=== PATIENT | female | born 2000 ===

== ENCOUNTER 2019-03-05 00:03 | Inpatient (IN) ==
[2019-03-05 01:01] LABS: Apearance,Urine Slightly Hazy (Clear); Bacteria,Urine Many /HPF (Few); Bilirubin,Urine Negative (Negative); Blood, Urine Negative (Negative); Glucose,Urine (UA) Negative (Negative); Ketones,Urine Negative (Negative); Mucus,Urine Occasional /LPF (Occasional); Nitrite,Urine Positive (Negative); Protein,Urine Negative; RBC,Urine 3 /HPF (0-4); Squamous Epithelial Cell,Urine Few /HPF (0-10); Urine Color Yellow (Yellow); Urine Specific Gravity 1.019 (1.001-1.035); Urine Urobilinogen < 2.0 EU/DL (0.2-1.0); WBC,Urine 17 /HPF (0-6)
[2019-03-05] MEDS ORDERED: ceFAZolin 2,000 MG in PREMIX 1 EACH IV ONE ×2 (01:08→06:57)
[2019-03-05] MEDS ORDERED: ONDANSETRON 4 MG/2 ML VIAL IV PRN ×2 (01:09→08:48)
[2019-03-05] MEDS ORDERED: LACTATED RINGERS 1,000 ML IV ONE (01:09)
[2019-03-05] MEDS ORDERED: MEPERIDINE 25 MG/1 ML VIAL IV PRN (01:09)
[2019-03-05] MEDS ORDERED: diphenhydrAMINE 50 MG/1 ML VIAL IV ONE (01:59)
[2019-03-05] MEDS ORDERED: BUTORPHANOL 1 MG/ML VIAL IV ONE (05:06)
[2019-03-05] MEDS ORDERED: FAMOTIDINE 20 MG/2 ML VIAL IV ONE (06:57)
[2019-03-05] MEDS ORDERED: CITRIC ACID/SODIUM CITRATE 30 ML UDCUP PO ONE (06:57)
[2019-03-05] MEDS ORDERED: LACTATED RINGERS 1,000 ML IV SCH ×2 (07:00→09:00)
[2019-03-05 07:05] LABS: Basophils % 0.4 % (0.0-0.8); Eosinophils % 0.4 % (0.00-10.9); Hematocrit 30.7 VOL% (35.7-47.0); Hemoglobin 9.5 GM/DL (12.0-16.0); Immature Granulocytes % 0.5 %; Immature Granulocytes Absolute 0.04 #; Lymphocytes # 2.1 10*3/uL (1.4-4.0); Lymphocytes % 26.8 % (21.3-54.2); Mean Corpuscular HGB Conc 30.9 GM/DL (32-36); Mean Corpuscular Hemoglobin 26 PG (27-34); Mean Platelet Volume 11.4 FL (9.6-12.0); Monocytes # 0.5 10*3/uL (0.11-0.8); Monocytes % 6.3 % (1.7-12.7); Neutrophils % 65.6 % (38.7-73.9); Platelet Count 242 T/CUMM (130-400); Red Blood Count 3.61 MC/CUMM (3.8-5.5); Red Cell Distribution Width 15.9 % (9.3-17.3); White Blood Count 7.6 T/CUMM (4-12)
[2019-03-05] MEDS ORDERED: BUPIVACAINE 0.5% 50 ML VIAL ONE (07:46)
[2019-03-05] MEDS ORDERED: EPINEPHrine 1 MG/ML VIAL ONE (07:46)
[2019-03-05] MEDS ORDERED: DEXAMETHASONE 4 MG/1 ML VIAL ONE (07:46)
[2019-03-05] MEDS ORDERED: BUPIVACAINE SPINAL 0.75% 2 ML AMP SPINAL ONE (07:49)
[2019-03-05] MEDS ORDERED: fentaNYL 100 MCG/2 ML VIAL ONE (07:49)
[2019-03-05] MEDS ORDERED: PHENYLEPHRINE 1 MG/10 ML SYRINGE IV ONE (07:49)
[2019-03-05] MEDS ORDERED: OXYTOCIN/LR 20 UNIT/1,000 ML BAG IV ONE ×2 (07:53→08:48)
[2019-03-05 07:58] LABS: Alanine Aminotransferase 11 U/L (13-56); Albumin 2.4 G/DL (3.4-5.0); Alkaline Phosphatase 244 U/L (45-117); Aspartate Amino Transferase 14 U/L (0-37); Bilirubin,Total < 0.39 MG/DL (0.2-1.0); Blood Urea Nitrogen 12 MG/DL (7-18); Calcium 8.2 MG/DL (8.5-10.1); Glucose 77 MG/DL (74-106); Osmolality,Calculated 277.4 MOS/KG (273-304); Potassium 4.2 MMOL/L (3.5-5.1); Sodium 140 MMOL/L (136-145); Total Protein 6.2 G/DL (6.4-8.3)
[2019-03-05] MEDS ORDERED: IBUPROFEN 800 MG TABLET PO PRN (08:48)
[2019-03-05] MEDS ORDERED: MAGNESIUM HYDROXIDE SUSP 30 ML UDCUP PO PRN (08:48)
[2019-03-05] MEDS ORDERED: SIMETHICONE CHEW 80 MG TABLET PO PRN (08:48)
[2019-03-05] MEDS ORDERED: ACETAMINOPHEN 325 MG TABLET PO PRN (08:48)
[2019-03-05] MEDS ORDERED: RHO(D) IMMUNE GLOBULIN 300 MCG SYRINGE IM ONE (09:00)
[2019-03-05 09:10] LABS: Apearance,Urine CLEAR (Clear); Bilirubin,Urine Negative (Negative); Blood, Urine Small mg/dL (Negative); Glucose,Urine (UA) Negative (Negative); Ketones,Urine Negative (Negative); Mucus,Urine Occasional /LPF (Occasional); Nitrite,Urine Negative (Negative); Protein,Urine Negative; RBC,Urine <1 /HPF (0-4); Squamous Epithelial Cell,Urine Occasional /HPF (0-10); Urine Color Yellow (Yellow); Urine Specific Gravity 1.013 (1.001-1.035); Urine Urobilinogen < 2.0 EU/DL (0.2-1.0); WBC,Urine 24 /HPF (0-6)
[2019-03-05] MEDS: KETOROLAC 30 MG/1 ML VIAL IV SCH ×3 (10:10→22:27)
[2019-03-05] MEDS ORDERED: hydrOXYzine HCL 25 MG/1 ML VIAL IM PRN (10:18)
[2019-03-05] MEDS ORDERED: diphenhydrAMINE 50 MG/1 ML VIAL IV PRN (10:18)
[2019-03-05] MEDS: HYDROmorphone 2 MG/1 ML VIAL IV PRN ×2 (10:24→12:08)
[2019-03-05] MEDS ORDERED: ACETAMINOPHEN 500 MG TABLET PO SCH (10:30)
[2019-03-05] MEDS: ceFAZolin 1,000 MG in SYRINGE 1 EACH IV SCH ×2 (15:59→22:36)
[2019-03-05 17:55] LABS: Basophils % 0.2 % (0.0-0.8); Hematocrit 25.7 VOL% (35.7-47.0); Hemoglobin 7.7 GM/DL (12.0-16.0); Immature Granulocytes % 0.8 %; Immature Granulocytes Absolute 0.15 #; Lymphocytes # 0.8 10*3/uL (1.4-4.0); Lymphocytes % 4.3 % (21.3-54.2); Mean Corpuscular Hemoglobin 25 PG (27-34); Mean Corpuscular Volume 84.3 FL (87-102); Mean Platelet Volume 10.4 FL (9.6-12.0); Monocytes # 0.4 10*3/uL (0.11-0.8); Monocytes % 2.1 % (1.7-12.7); Neutrophils # 17.7 10*3/uL (1.4-7.4); Neutrophils % 92.6 % (38.7-73.9); Platelet Count 239 T/CUMM (130-400); Red Blood Count 3.05 MC/CUMM (3.8-5.5); Red Cell Distribution Width 15.5 % (9.3-17.3); White Blood Count 19.1 T/CUMM (4-12)
[2019-03-05 18:14] LABS: Lymphocytes 7 % (20-55); Platelet Estimate Normal; Segmented Neutrophils 90 % (50-85); Total Cells Counted 100
[2019-03-05 18:15] LABS: Hypochromasia 1+; Microcytosis 1+
[2019-03-05] MEDS: DOCUSATE SODIUM 100 MG CAPSULE PO SCH (20:41)
[2019-03-06 04:39] LABS: Basophils % 0.3 % (0.0-0.8); Eosinophils % 0.1 % (0.00-10.9); Hematocrit 22.1 VOL% (35.7-47.0); Hemoglobin 6.8 GM/DL (12.0-16.0); Immature Granulocytes % 0.6 %; Lymphocytes # 2.5 10*3/uL (1.4-4.0); Lymphocytes % 16.3 % (21.3-54.2); Mean Corpuscular HGB Conc 30.8 GM/DL (32-36); Mean Corpuscular Hemoglobin 26 PG (27-34); Mean Platelet Volume 10.2 FL (9.6-12.0); Monocytes # 0.8 10*3/uL (0.11-0.8); Neutrophils % 77.7 % (38.7-73.9); Platelet Count 196 T/CUMM (130-400); Red Blood Count 2.63 MC/CUMM (3.8-5.5); Red Cell Distribution Width 15.5 % (9.3-17.3); White Blood Count 15.5 T/CUMM (4-12)
[2019-03-06] MEDS: KETOROLAC 30 MG/1 ML VIAL IV SCH (04:44)
[2019-03-06] MEDS: MULTIVITAMIN (PRENATAL) TABLET PO SCH (08:38)
[2019-03-06] MEDS: DOCUSATE SODIUM 100 MG CAPSULE PO SCH ×2 (08:38→20:14)
[2019-03-06] MEDS: FERROUS SULFATE 325 MG TABLET PO SCH ×3 (08:38→20:14)
[2019-03-06] MEDS ORDERED: FERROUS SULFATE 325 MG TABLET PO SCH (09:00)
[2019-03-07 07:17] VITALS: BP 97/53
[2019-03-07] MEDS: DOCUSATE SODIUM 100 MG CAPSULE PO SCH ×2 (08:13)
[2019-03-07] MEDS: MULTIVITAMIN (PRENATAL) TABLET PO SCH (08:13)
[2019-03-07] MEDS: FERROUS SULFATE 325 MG TABLET PO SCH (08:14)
[2019-03-07] MEDS ORDERED: DIPH/TET/ACEL PERT BOOSTER VACCINE 0.5 ML VIAL IM ONE (11:24)
== END 2019-03-07 13:20 | disposition home or self-care (01) | DRG 540 ==
LOC: N.LD 00:03 → N.LDOUT 00:03 → N.LD 00:07 → OBSVTOIN 00:11 → N.LD 10:21 → N.OB 12:03
PROVIDERS: ADMIT Obstetrics & Gynecology; ATTEND Obstetrics & Gynecology
PROC: LDCSECT (ICD-10-PCS; 2019-03-05 08:00)

== ENCOUNTER 2020-08-11 15:44 | Observation (INO) ==
[2020-08-11] MEDS ORDERED: SODIUM CHLORIDE 0.9% 1,000 ML IV STA (16:17)
[2020-08-11 17:01] LABS: Bacteria,Urine Occasional /HPF (Few); Bilirubin,Urine Negative (Negative); Blood, Urine Large mg/dL (Negative); Glucose,Urine (UA) Negative (Negative); Ketones,Urine Negative (Negative); Nitrite,Urine Negative (Negative); Protein,Urine 30 MG/DL; RBC,Urine 2 /HPF (0-4); Squamous Epithelial Cell,Urine Occasional /HPF (0-10); Urine Appearance CLEAR (Clear); Urine Color Amber (Yellow); Urine Specific Gravity 1.013 (1.001-1.035); Urine Urobilinogen < 2.0 EU/DL (0.2-1.0); WBC,Urine 7 /HPF (0-6)
[2020-08-11 17:25] LABS: Basophils % 0.2 % (0.0-0.8); Eosinophils % 0.2 % (0.00-10.9); Hematocrit 32.2 VOL% (35.7-47.0); Hemoglobin 9.4 GM/DL (12.0-16.0); Immature Granulocytes % 0.2 %; Immature Granulocytes Absolute 0.02 #; Lymphocytes # 0.8 10*3/uL (1.4-4.0); Lymphocytes % 9.4 % (21.3-54.2); Mean Corpuscular HGB Conc 29.2 GM/DL (32-36); Mean Corpuscular Volume 76.5 FL (87-102); Mean Platelet Volume 8.2 FL (9.6-12.0); Monocytes % 5.2 % (1.7-12.7); Neutrophils % 84.8 % (38.7-73.9); Platelet Count 348 T/CUMM (130-400); Red Blood Count 4.21 MC/CUMM (3.8-5.5); Red Cell Distribution Width 17.9 % (9.3-17.3); White Blood Count 8.7 T/CUMM (4-12)
[2020-08-11 17:37] LABS: Barbiturates Screen,Urine Negative (Negative); Benzodiazepines Screen,Urine Negative (Negative); Cannabinoid Screen,Urine Negative (Negative); Opiate Screen,Urine Negative (Negative); Phencyclidine Screen,Urine Negative (Negative)
[2020-08-11 17:54] LABS: Albumin 3.8 G/DL (3.4-5.0); Bilirubin,Total 0.6 MG/DL (0.2-1.0); Calcium 8.8 MG/DL (8.5-10.1); Osmolality,Calculated 274.5 MOS/KG (273-304); Thyroid Stimulating Hormone 1.13 uIU/ml (0.358-3.74); Total Protein 7.6 G/DL (6.4-8.3)
[2020-08-11] MEDS ORDERED: GLUCAGON 1 MG VIAL IM PRN (19:29)
[2020-08-11] MEDS ORDERED: DOCUSATE SODIUM 100 MG CAPSULE PO PRN (19:29)
[2020-08-11] MEDS ORDERED: DEXTROSE 50% 25 GM/50 ML VIAL IV PRN (19:29)
[2020-08-11] MEDS ORDERED: ONDANSETRON 4 MG/2 ML VIAL IV PRN (19:29)
[2020-08-11] MEDS ORDERED: ACETAMINOPHEN 325 MG TABLET PO PRN (19:29)
[2020-08-11] MEDS ORDERED: ENOXAPARIN 40 MG/0.4 ML SYRINGE SUBCUT SCH (21:00)
[2020-08-12 05:56] LABS: Basophils % 0.5 % (0.0-0.8); Eosinophils % 0.5 % (0.00-10.9); Hemoglobin 8.8 GM/DL (12.0-16.0); Immature Granulocytes % 0.3 %; Immature Granulocytes Absolute 0.02 #; Lymphocytes # 1.8 10*3/uL (1.4-4.0); Lymphocytes % 27.6 % (21.3-54.2); Mean Corpuscular HGB Conc 28.9 GM/DL (32-36); Mean Corpuscular Volume 78.6 FL (87-102); Mean Platelet Volume 8.4 FL (9.6-12.0); Monocytes % 5.9 % (1.7-12.7); Neutrophils % 65.2 % (38.7-73.9); Platelet Count 346 T/CUMM (130-400); Red Blood Count 3.88 MC/CUMM (3.8-5.5); Red Cell Distribution Width 17.9 % (9.3-17.3); White Blood Count 6.6 T/CUMM (4-12)
[2020-08-12 06:22] LABS: % Iron Saturation 10.8 % (18-50); Ferritin 3.3 ng/ml (8-252)
[2020-08-12 06:23] LABS: Calcium 8.4 MG/DL (8.5-10.1); Osmolality,Calculated 275.4 MOS/KG (273-304)
[2020-08-12 06:29] LABS: Hematocrit 30.2 VOL% (35.7-47.0)
[2020-08-12 06:32] LABS: Hypochromasia 2+; Microcytosis 1+; Ovalocytes Slight; Platelet Estimate Adequate
[2020-08-12 06:34] LABS: Folate 15.4 NG/ML (5.4-24.0); Vitamin B12 252 PG/ML (211-911)
[2020-08-12 07:09] LABS: Sedimentation Rate-Westergren 18 MM/HR (0-20)
[2020-08-12] MEDS ORDERED: CYANOCOBALAMIN 1000 MCG/1 ML VIAL IM ONE (09:02)
[2020-08-12] MEDS ORDERED: MAGNESIUM SULF RIDER 2 GM in PREMIX 1 EACH IV ONE (09:20)
[2020-08-12] MEDS ORDERED: CHOLECALCIFEROL 1,000 UNIT TABLET PO SCH (09:30)
[2020-08-12] MEDS ORDERED: METOPROLOL TARTRATE 25 MG TABLET PO SCH (09:30)
[2020-08-12] MEDS ORDERED: FERROUS SULFATE ER 140 MG TABLET PO SCH (09:30)
[2020-08-12 12:27] VITALS: BP 104/58
[2020-08-12] MEDS ORDERED: carvediloL 6.25 MG TABLET PO SCH (21:00)
[2020-08-13 07:35] LABS: Hemoglobin A1 (Alkaline) 97.6 % (96.5-98.5); Hemoglobin A2 (Alkaline) 2.4 % (1.5-3.5)
[2020-08-13] MEDS ORDERED: CYANOCOBALAMIN 100 MCG TABLET PO SCH (09:00)
[2020-08-15 08:31] LABS: Soluble Transf Receptor (sTfR) 13.3 mg/L (1.8 - 4.6)
== END 2020-08-12 15:12 | disposition home or self-care (01) ==
LOC: EDUNIT# → EDBD → N.EDINP 15:44 → N.ED 15:44 → N.TELES 19:44
PROVIDERS: ADMIT Hospitalist; ATTEND Hospitalist